=== PATIENT | female | born 1990 | race Caucasian/White ===

== ENCOUNTER 2016-07-24 10:13 | Emergency (ER) | payer OTHER ==
[~2016-07-24] VITALS: Ht 160 cm; Wt 63.5 kg
[~2016-07-24 10:13] MED LIST: BACTRIM DS 8001 TAB PO; ENDOCET 325 MG-1 TA1 PO; KEFLEX500 MG PO; KETOROLAC TROME10 M1 PO; MOTRIN 600 MG600 MG PO; MOTRIN800 MG PO; NAPROXEN500 M1 PO; PERCOCET 325 MG1 TA2 PO; POLYTRIM O200 GTT/BO OPH; SEASONIQUE 30 M1 TAB PO; VIBRAMYCIN 100100 MG PO; VICODIN 5-3001 EACH PO
--- NOTE | 2016-07-24 11:36 | ED SKIN/ALLERGY COMPLAINT ---
History of Present Illness General Chief Complaint: Skin Rash/ Abcess Stated Complaint: SKIN RASH Source: patient, old records Exam Limitations: no limitations Vital Signs & Intake/Output Vital Signs & Intake/Output Vital Signs Date Time Temp Pulse Resp B/P Pulse O2 O2 Flow FiO2 Ox Delivery Rate 07/24 1246 98.1 74 18 126/72 97 Room Air 07/24 1049 97.4 70 20 122/77 98 Room Air Allergies Coded Allergies: lactose (Intermediate, GI UPSET 07/24/16) Reconcile Medications Amoxicillin/Potassium Clav (Augmentin 875-125 Tablet) 875 MG-125 MG TABLET 1 TAB PO BID CELLULITIS Prednisone 10 MG TABLET 1 TAB PO DAILY RASH TAKE 4 TABS FOR 3 DAYS THEN TAKE 3 TABS FOR 3 DAYS THEN TAKE 2 TABS FOR 3 DAYS THEN TAKE 1 TAB FOR 3 DAYS Triage Note: TRIAGE: PT TO ER C/C RASH TO L ARM AND TO TRUNK. NOTICED SAME THIS MORNING. STATES "I'M ITCHING LIKE CRAZY AND TEARING THE SKIN OFF". USED CORTIZONE CREAM WITH SHORT/TEMPORARY RELIEF. Triage Nurses Notes Reviewed? yes : No Patient currently breastfeeds: No HPI: Patient was staying with a friend in [place] in a cabin in the [facility] over the weekend. Patient noticed that her left forearm was itching yesterday. This morning she noticed that she was now getting a rash to her left forearm and this morning the rash spread to her left lower abdomen. There are no fevers however she does have a chills. She notices that the skin around the rash is now starting to become red and warm to touch. Rash constant. Patient denies any pain. There is no difficulty breathing or swallowing. States that she is also urinating more than than normal. Patient denies any dysuria. Past History Travel History Traveled to [place] past 21 day No Medical History Any Pertinent Medical History? 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 No Review of Systems Review of Systems Constitutional: Reports: see HPI, chills. EENTM: Reports: no symptoms. Respiratory: Reports: no symptoms. Cardiovascular: Reports: no symptoms. Genitourinary: Reports: see HPI, frequency. Musculoskeletal: Reports: no symptoms. Skin: Reports: see HPI, rash. Immunologic/Allergic: Reports: no symptoms. Physical Exam Physical Exam General Appearance: well developed/nourished, alert, awake, mild distress Eyes: Bilateral: PERRL, EOMI. Ears, Nose, Throat: normal pharynx, normal ENT inspection, hearing grossly normal Neck: normal inspection, supple Respiratory: normal breath sounds, chest non-tender, no respiratory distress, lungs clear Cardiovascular: regular rate/rhythm, normal peripheral pulses Gastrointestinal: normal bowel sounds, soft, non-tender, no organomegaly Back: normal inspection, normal range of motion, NO cva TENDERNESS Extremities: normal capillary refill, normal range of motion Neurologic/Psych: no motor/sensory deficits, awake, alert, oriented x 3, normal gait Skin: rash Skin Problem Location: upper extremities, torso Skin Problem Character: macules, papules Lymphatic: NO ADENOPATHY Progress Differential Diagnosis: abscess/cellulitis, contact dermatitis Plan of Care: Orders Procedure Date/time Status URINE 07/24 1141 Complete URINALYSIS 07/24 1141 Complete Laboratory Tests 07/24/16 1155: Urinalysis LIGHT H, Urine Color KIERA, Urine Clarity HAZY H, Urine pH 6.0, Ur Specific [place] >= 1.030, Urine Protein 100 H, Urine Ketones NEG, Urine Nitrite NEG, Urine Bilirubin NEG, Urine Urobilinogen 0.2, Ur Leukocyte Esterase NEG, Ur Microscopic SEDIMENT EXAMINED, Urine RBC 1-3, Urine WBC RARE, Ur Epithelial Cells MANY H, Urine Bacteria MOD H, Urine Mucus PACKD H, Urine Hemoglobin TRACE-LYSED, Urine Glucose NEG, Urine Test NEGATIVE Departure Departure Disposition: HOME OR SELF CARE Condition: Stable Clinical Impression Primary Impression: Rash Secondary Impressions: Cellulitis Referrals: SHAQUILLE THOMPSON,DELROY Rincon (PCP/Family) Additional Instructions: TAKE MEDICATIOSN PRESCRIBED REUTRN IF SYMPTOMS WORSEN OR NEEDED Departure Forms: Customer Survey General Discharge Information Prescriptions: Current Visit Scripts Amoxicillin/Potassium Clav (Augmentin 875-125 Tablet) 1 TAB PO BID #20 TAB Prednisone 1 TAB PO DAILY #30 TAB TAKE 4 TABS FOR 3 DAYS THEN TAKE 3 TABS FOR 3 DAYS THEN TAKE 2 TABS FOR 3 DAYS THEN TAKE 1 TAB FOR 3 DAYS
[2016-07-24] MEDS ORDERED: AUGMENTIN 875-1 EACH PO (12:41)
[2016-07-24] MEDS ORDERED: PREDNISONE10 M2 PO (12:41)
[2016-07-24 12:46] VITALS: BP 126/72
== END 2016-07-24 12:47 ==
LOC: ERH 10:13
DX: R21 Rash and other nonspecific skin eruption (principal); L03.90 Cellulitis, unspecified; R68.83 Chills (without fever); R35.0 Frequency of micturition
CPT/HCPCS: 81001; 81025

== ENCOUNTER 2016-09-21 07:41 | Emergency (ER) | payer OTHER ==
[~2016-09-21] VITALS: Ht 160 cm; Wt 59.0 kg
[~2016-09-21 07:41] MED LIST changes: +AUGMENTIN 875-1 EACH PO; +PREDNISONE10 M2 PO
--- NOTE | 2016-09-21 08:10 | ED GI/GU/ABDOMINAL COMPLAINT ---
History of Present Illness General Chief Complaint: Abdominal Pain/Flank Pain Stated Complaint: ABD PAIN Source: patient Exam Limitations: no limitations Vital Signs & Intake/Output Vital Signs & Intake/Output Vital Signs Date Time Temp Pulse Resp B/P B/P Pulse O2 O2 Flow FiO2 Mean Ox Delivery Rate 09/21 0755 Room Air 09/21 0742 98.6 69 18 107/68 98 Room Air Allergies Coded Allergies: lactose (Intermediate, GI UPSET 07/24/16) Reconcile Medications Naproxen (Naprosyn) 500 MG TABLET 1 TAB PO BID PRN PAIN Triage Note: 26 YO FEMALE TO TRIAGE C/O RLQ PAIN SINCE SUNDAY. STATES +NAUSEA/VOMTINIG/DIARRHEA. HX OF ENDOMETRIOSIS (STATES THIS PAIN IS DIFFERENT) LMP 09/04/16. Triage Nurses Notes Reviewed? yes ? N Is pt currently ? No Onset: Gradual Duration: worse persistent since (1 DAY) Timing: remote history Quality/Severity: cramping Severity Numbers: 6 Location: suprapubic Radiation: no radiation Activities at Onset: none Prior Abdominal Problems: similar symptoms HPI: Patient is a 26-year-old female with history of ovarian cysts, endometriosis presenting to the emergency department with chief complaint of suprapubic pain has been going on for the past couple days worse this morning. Denies any nausea vomiting fevers or chills. Positive decreased by mouth intake. No appetite. Denies any vaginal discharge or bleeding. Denies chance of STD or . Last menstrual period was 2 weeks ago and normal. Denies any recent travel or recent antibiotic use. Past History Travel History Traveled to [place] past 21 day No Medical History Any Pertinent Medical History? 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 No Review of Systems Review of Systems Constitutional: Reports: no symptoms. Comments Review of systems: See HPI, All other systems negative. Constitutional, no chills fever or weight loss HEENT: No visual changes no sore throat no congestion Cardiovascular: No chest pain ,palpitation Skin, no jaundice no rashes Respiratory: No dyspnea cough sputum or hemoptysis GI: No nausea no vomiting : No dysuria No hematuria Muscle skeletal: no back pain, no neck pain, Neurologic: No numbness no confusion Psych: No stress anxiety Immunology: No splenectomy or history of AIDS Physical Exam Physical Exam General Appearance: well developed/nourished, no apparent distress, alert, awake , comfortable Gastrointestinal: normal bowel sounds, soft, tenderness Comments: Well-developed well-nourished person in no acute distress HEENT: Pupils equally round and reactive to light and accommodation. Nose is atraumatic. Neck: Normal inspection Back: Nontender, no CVA tenderness. Full range of motion Cardiovascular: Regular rate and rhythms no murmurs rubs or gallops, normal JVP Respiratory: Chest nontender. No respiratory distress.breath sounds clear to auscultation bilaterally Abdomen: Soft, tenderness to palpation in the suprapubic region bilaterally, no rebound or guarding, nondistended, no appreciable organomegaly. Normal bowel sounds. No ascites Extremity: No edema Neuro: Alert oriented x3 Skin: No appreciable rash on exposed skin, skin is warm and dry. Psych: Mood and affect is normal, memory and judgment is normal. Core Measures ACS in differential dx? No Severe Sepsis Present: No Septic Shock Present: No Progress Differential Diagnosis: appendicitis, endometritis, gastritis, kidney stone, ovarian cyst, ovarian torsion, UTI/pyelo, Plan of Care: Orders Procedure Date/time Status LIPASE 09/21 0808 Complete COMPREHENSIVE METABOLIC PANEL 09/21 0808 Complete CBC WITHOUT DIFFERENTIAL 09/21 0808 Complete URINE 09/21 0746 Complete URINALYSIS 09/21 0746 Complete Laboratory Tests 09/21/16 0907: Urine Color YEL, Urine Clarity CLEAR, Urine pH 6.0, Ur Specific [place] 1.025, Urine Protein NEG, Urine Ketones NEG, Urine Nitrite NEG, Urine Bilirubin NEG, Urine Urobilinogen 0.2, Ur Leukocyte Esterase NEG, Ur Microscopic EXAM NOT REQUIRED, Urine Hemoglobin NEG, Urine Glucose NEG, Urine Test NEGATIVE 09/21/16 0809: Anion Gap 11, Estimated GFR > 60, BUN/Creatinine Ratio 6.3 L, Glucose 72, Calcium 9.6, Total Bilirubin 0.5, AST 18, ALT 33, Alkaline Phosphatase 65, Total Protein 6.8, Albumin 4.2, Globulin 2.6, Albumin/Globulin Ratio 1.6, Lipase 164, CBC w Diff NO MAN DIFF REQ, RBC 4.20, MCV 94.7, MCH 31.5 H, RDW 13.3, MPV 9.1, Gran % 53.5, Lymphocytes % 36.8, Monocytes % 6.5, Eosinophils % 2.7, Basophils % 0.5, Absolute Granulocytes 5.6, Absolute Lymphocytes 3.9 H, Absolute Monocytes 0.7 H, Absolute Eosinophils 0.3, Absolute Basophils 0.1, PUBS MCHC 33.3 Diagnostic Imaging: Viewed by Me: Ultrasound. Discussed w/RAD: Ultrasound. Radiology Impression: PATIENT: EUGENIA RANGEL PRESENT AGE: 26 PATIENT ACCOUNT NO: [id number] : 89 LOCATION: [facility] ORDERING PHYSICIAN: JOE SHAW SERVICE DATE: 09/21/16 EXAM TYPE: US - US-TRANSVAGINAL EXAMINATION: US TRANSVAGINAL CLINICAL INFORMATION: Suprapubic pain. Rule out ovarian cyst. Date of LMP 09/04/2016. COMPARISON: Pelvic ultrasound of 06/24/[address] abdomen and pelvis of 03/24/2007. TECHNIQUE: Real-time scanning of the uterus is acquired via transvaginal approach. FINDINGS: The uterus is anteverted and normal in size measuring 7.6 x 2.5 x 3.6 cm in length, AP and transverse dimensions respectively. Endometrial stripe thickness is 0.5 cm. The myometrial echotexture is homogeneous. No focal myometrial mass. The cervical length is approximately 3.2 cm. Trace fluid is noted in the cervical canal. Nabothian cyst is noted in the cervix. The right ovary measures 2.6 x 4.2 x 2.4 cm with a volume of 14 mL (remeasured). There is a complex avascular cyst in the right ovary measuring 1.7 x 1.3 x 1.4 cm, with anechoic cystic lesion containing a 0.8 x 1.2 x 1.1 cm from internal echogenic avascular component. On previous examination a 1.3 x 1.7 x 1.6 cm simple cyst was noted in this region. The left ovary is normal in appearance containing multiple follicles. Left ovary measures 3.1 x 2.3 x 2.2 cm with a volume of 9 mL. Bilateral intraovarian blood flow is documented. No adnexal mass or free fluid. IMPRESSION: A complex right ovarian cyst measuring 1.7 x 1.3 x 1.4 cm. Recommend follow-up ultrasound in 2-3 menstrual cycles. Normal sonographic appearance of the uterus and left ovary. DICTATED BY: GUSTAVO WYNN MD DATE/TIME DICTATED:09/21/161005 TICKET MANAGER:SURINDER DATE/TIME TRANSCRIBED:1005 CONFIDENTIAL, DO NOT COPY WITHOUT APPROPRIATE AUTHORIZATION. 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 It is recommended that he receive a repeat ultrasound in 3-4 months to reassess the status. Take anti-inflammatories prescribed. Return for worsening symptoms or concerns. Increase fluids. PATIENT: EUGENIA RANGEL PRESENT AGE: 26 PATIENT ACCOUNT NO: [id number] : 89 LOCATION: [facility] ORDERING PHYSICIAN: JOE SHAW SERVICE DATE: 09/21/16 EXAM TYPE: US - US-TRANSVAGINAL EXAMINATION: US TRANSVAGINAL CLINICAL INFORMATION: Suprapubic pain. Rule out ovarian cyst. Date of LMP 09/04/2016. COMPARISON: Pelvic ultrasound of 06/24/[address] abdomen and pelvis of 03/24/2007. TECHNIQUE: Real-time scanning of the uterus is acquired via transvaginal approach. FINDINGS: The uterus is anteverted and normal in size measuring 7.6 x 2.5 x 3.6 cm in length, AP and transverse dimensions respectively. Endometrial stripe thickness is 0.5 cm. The myometrial echotexture is homogeneous. No focal myometrial mass. The cervical length is approximately 3.2 cm. Trace fluid is noted in the cervical canal. Nabothian cyst is noted in the cervix. The right ovary measures 2.6 x 4.2 x 2.4 cm with a volume of 14 mL (remeasured). There is a complex avascular cyst in the right ovary measuring 1.7 x 1.3 x 1.4 cm, with anechoic cystic lesion containing a 0.8 x 1.2 x 1.1 cm from internal echogenic avascular component. On previous examination a 1.3 x 1.7 x 1.6 cm simple cyst was noted in this region. The left ovary is normal in appearance containing multiple follicles. Left ovary measures 3.1 x 2.3 x 2.2 cm with a volume of 9 mL. Bilateral intraovarian blood flow is documented. No adnexal mass or free fluid. IMPRESSION: A complex right ovarian cyst measuring 1.7 x 1.3 x 1.4 cm. Recommend follow-up ultrasound in 2-3 menstrual cycles. Normal sonographic appearance of the uterus and left ovary. DICTATED BY: GUSTAVO WYNN MD DATE/TIME DICTATED:09/21/161005 TICKET MANAGER:SURINDER DATE/TIME TRANSCRIBED:09/21/161005 CONFIDENTIAL, DO NOT COPY WITHOUT APPROPRIATE AUTHORIZATION. <Electronically signed in Other Vendor System> SIGNED BY: GUSTAVO WYNN MD 09/21/16 1025 Departure Forms: Customer Survey D/C INS-APPENDICITIS EXCLUSION General Discharge Information Prescriptions: Current Visit Scripts Naproxen (Naprosyn) 1 TAB PO BID PRN PAIN #10 TAB
[2016-09-21 08:24] LABS: ABSOLUTE BASOPHIL COUNT 0.1 /CUMM (0.0-0.2); ABSOLUTE EOSINOPHIL COUNT 0.3 /CUMM (0.0-0.7); ABSOLUTE GRANULOCYTE CT 5.6 /CUMM (1.4-6.5); ABSOLUTE LYMPH COUNT 3.9 /CUMM (1.2-3.4); ABSOLUTE MONOCYTE COUNT 0.7 /CUMM (0.10-0.60); BASOPHIL % 0.5 % (0.0-2.0); EOSINOPHIL % 2.7 % (0-5); GRANULOCYTE % 53.5 % (42.2-75.2); HEMATOCRIT 39.8 % (37-47); MEAN CORPUSCULAR HGB 31.5 PG (27.0-31.0); MEAN CORPUSCULAR HGB CONC 33.3 G/DL (33.0-37.0); MEAN CORPUSCULAR VOLUME 94.7 FL (81.0-99.0); MEAN PLATELET VOLUME 9.1 FL (7.4-10.4); PLATELET COUNT 313 /CUMM (130-400); RBC DISTRIBUTION WIDTH 13.3 % (11.5-14.5); WHITE BLOOD CELL COUNT 10.5 /CUMM (4.8-10.8)
--- NOTE | 2016-09-21 10:25 | ULTRASOUND REPORT ---
EXAMINATION: US TRANSVAGINAL CLINICAL INFORMATION: Suprapubic pain. Rule out ovarian cyst. Date of LMP 09/04/2016. COMPARISON: Pelvic ultrasound of 06/24/[address] abdomen and pelvis of 03/24/2007. TECHNIQUE: Real-time scanning of the uterus is acquired via transvaginal approach. FINDINGS: The uterus is anteverted and normal in size measuring 7.6 x 2.5 x 3.6 cm in length, AP and transverse dimensions respectively. Endometrial stripe thickness is 0.5 cm. The myometrial echotexture is homogeneous. No focal myometrial mass. The cervical length is approximately 3.2 cm. Trace fluid is noted in the cervical canal. Nabothian cyst is noted in the cervix. The right ovary measures 2.6 x 4.2 x 2.4 cm with a volume of 14 mL (remeasured). There is a complex avascular cyst in the right ovary measuring 1.7 x 1.3 x 1.4 cm, with anechoic cystic lesion containing a 0.8 x 1.2 x 1.1 cm from internal echogenic avascular component. On previous examination a 1.3 x 1.7 x 1.6 cm simple cyst was noted in this region. The left ovary is normal in appearance containing multiple follicles. Left ovary measures 3.1 x 2.3 x 2.2 cm with a volume of 9 mL. Bilateral intraovarian blood flow is documented. No adnexal mass or free fluid. IMPRESSION: A complex right ovarian cyst measuring 1.7 x 1.3 x 1.4 cm. Recommend follow-up ultrasound in 2-3 menstrual cycles. Normal sonographic appearance of the uterus and left ovary.
[2016-09-21] MEDS ORDERED: NAPROSYN500 M1 PO (10:38)
[2016-09-21 10:41] VITALS: BP 100/68
== END 2016-09-21 10:45 ==
LOC: ERH 07:41
PROVIDERS: Physician Assistant
DX: N83.201 Unspecified ovarian cyst, right side (principal)
CPT/HCPCS: 81003; 81025; 96372; J1885

== ENCOUNTER 2016-10-03 15:38 | Emergency (ER) | payer OTHER ==
[~2016-10-03] VITALS: Ht 160 cm; Wt 59.0 kg
[~2016-10-03 15:38] MED LIST changes: +NAPROSYN500 M1 PO
[2016-10-03 15:46] VITALS: BP 120/67
[2016-10-03] MEDS ORDERED: HYDROCODON-ACE1 EAC2 PO (17:36)
--- NOTE | 2016-10-03 17:37 | ED GI/GU/ABDOMINAL COMPLAINT ---
History of Present Illness General Chief Complaint: Female Urogenital Problems Stated Complaint: LOWER ABD PAIN Source: patient Exam Limitations: no limitations Vital Signs & Intake/Output Vital Signs & Intake/Output Vital Signs Date Time Temp Pulse Resp B/P B/P Pulse O2 O2 Flow FiO2 Mean Ox Delivery Rate 10/03 1546 98.9 81 15 120/67 100 Room Air Allergies Coded Allergies: lactose (Intermediate, GI UPSET 07/24/16) Reconcile Medications Hydrocodone/Acetaminophen (Hydrocodon-Acetaminophen 5-325) 5 MG-325 MG TABLET 1-2 TAB PO Q4-6 PRN PRN pain Naproxen (Naprosyn) 500 MG TABLET 1 TAB PO BID PRN PAIN Triage Note: PT TO ED FOR PELVIC PAIN AND "IT FEELS LIKE THERE IS ROCKS IN MY HEAD" PT STATING SHE WAS SEEN IN ED FOR SAME ON 09/21, REFERRED TO F/U WITH HER OB (HAS A F/U APPT ON SUNDAY) BUT COMES TO ED TODAY FOR PAIN CONTROL AND STATING SHE IS 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 Triage Nurses Notes Reviewed? yes ? n Is pt currently ? No Onset: Abrupt Duration: week(s): (couple), constant Timing: recent history Location: right lower quadrant, pelvic Radiation: no radiation Activities at Onset: none No Modifying Factors: none HPI: 26-year-old female comes into emergency room for further evaluation of ovarian cyst pain to her right lower abdomen. Patient was seen here couple weeks ago and diagnosed with ovarian cyst. Patient has an appointment with her BOTTOM BUFFER doctor this Sunday. Patient is here primarily for pain medication. Patient does not want any further evaluation with blood work urine or diagnostic imaging. Patient just wants some pain medication and a work note for this week. She denies any fever chills decreased appetite and nausea vomiting or change in bowel movement. Denies any urinary symptoms. Denies any vaginal discharge. Patient has an extensive history ovarian cysts and she was teenager and reports that the pain feels very similar. Denies any other associated symptoms. (VELIA HILLIARD) Past History Travel History Traveled to [place] past 21 day No Medical History Any Pertinent Medical History? 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 No (VELIA HILLIARD) Review of Systems Review of Systems Constitutional: Reports: no symptoms. EENTM: Reports: no symptoms. Respiratory: Reports: no symptoms. Cardiovascular: Reports: no symptoms. GI: Reports: see HPI. Genitourinary: Reports: see HPI. Musculoskeletal: Reports: no symptoms. Skin: Reports: no symptoms. Neurological/Psychological: Reports: no symptoms. Hematologic/Endocrine: Reports: no symptoms. Immunologic/Allergic: Reports: no symptoms. All Other Systems: Reviewed and Negative (VELIA HILLIARD) Physical Exam Physical Exam General Appearance: well developed/nourished, alert, awake Head: atraumatic, normal appearance Eyes: Bilateral: normal appearance, EOMI. Ears, Nose, Throat, Mouth: hearing grossly normal, moist mucous membrane Neck: normal inspection Respiratory: normal breath sounds, no respiratory distress Cardiovascular: regular rate/rhythm Gastrointestinal: soft, tenderness (mild RLQ), no guarding or rebound tenderness Back: normal inspection Extremities: normal range of motion Neurologic/Psych: awake, alert, oriented x 3, normal gait, normal mood/affect Skin: intact, normal color Core Measures ACS in differential dx? No Severe Sepsis Present: No Septic Shock Present: No (VELIA HILLIARD) Progress Differential Diagnosis: appendicitis, biliary colic, cholecystitis, diverticulitis, ectopic , gastritis, ischemic bowel, intrauterine , ovarian cyst, ovarian torsion, pancreatitis, PID/cervicitis, peptic ulcer, PUD/GERD, SBO, UTI/pyelo Plan of Care: Laboratory Tests 10/03/16 1718: Urine Test Cancelled Initial ED EKG: none Comments: 10/03/2016 6:13:52 PM Patient clinically looks well. Nontoxic-appearing. In no apparent distress. Pain is more consistent with ovarian cyst pain. Patient was told that we should get blood work and urine sample and possibly diagnostic imaging. She declined. 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 She understands that there could be potentially other things going on besides ovarian cyst. I have a very low suspicion for appendicitis but discussed early possibility appendicitis with the patient. Patient understands the risks of leaving without further evaluation with blood work and urine. Potentially life- threatening conditions that can't be ruled out. Patient will follow-up with her BOTTOM BUFFER doctor and return if she has any worsening of symptoms. (MICHELLE SHAW,VELIA) Departure Departure Disposition: HOME OR SELF CARE Condition: Stable Clinical Impression Primary Impression: Abdominal pain Secondary Impressions: Complex cyst of right ovary Referrals: SHAQUILLE THOMPSON,DELROY Rincon (PCP/Family) Additional Instructions: Take Vicodin as prescribed. Follow-up with your primary care doctor. Return if any concerns worsening symptoms. Follow-up with your BOTTOM BUFFER doctor. At this time you declined any further evaluation with blood work and possible diagnostic imaging as well as urine sample. Please go over all results of today's visit with your primary care doctor. Contact your primary care doctor to let them know you were here in the emergency room. There may be nonspecific findings which may not be related to your visit today here in the emergency room but may require further evaluation and chronic monitoring by your primary care doctor. If you had a laceration today the chance of foreign body always remains. You should follow-up with your primary care doctor for recheck in 3-5 days for a wound check. If you had an x-ray done there is a chance that a fracture could have been missed on initial read and you should follow-up with your primary care doctor for repeat x-rays if symptoms persist. If your blood pressure was elevated here in the emergency room please have rechecked by her primary care doctor within the next 48 hours by your primary care doctor. If you were prescribed a narcotic here in the emergency room or any type of controlled substances you're not allowed to drive while taking this medication or operate any type of heavy machinery. Narcotics can make you feel lightheaded dizziness nausea and can cause constipation. You may need to berry picker a stool softener. Thank you for choosing [facility] emergency room. Please return to the emergency room immediately if you have any other concerns worsening of symptoms. Departure Forms: Customer Survey General Discharge Information Prescriptions: Current Visit Scripts Hydrocodone/Acetaminophen (Hydrocodon-Acetaminophen 5-325) 1-2 TAB PO Q4-6 PRN PRN pain #15 TAB (VELIA HILLIARD) PA/GAS METER READER Co-Sign Statement Statement: ED Attending supervision documentation- [] I saw and evaluated the patient. I have also reviewed all the pertinent lab results and diagnostic results. I agree with the findings and the plan of care as documented in the PA's/GAS METER READER's documentation. [X] I have reviewed the ED Record and agree with the PA's/GAS METER READER's documentation. [] Additions or exceptions (if any) to the PAs/GAS METER READER's note and plan are summarized below: [] (ANALIA THOMPSON,WILLIAM)
== END 2016-10-03 18:03 ==
LOC: ERH 15:38
DX: N83.201 Unspecified ovarian cyst, right side (principal)
CPT/HCPCS: 81025

== ENCOUNTER 2017-05-17 12:00 | Emergency (ER) | payer OTHER ==
[~2017-05-17] VITALS: Ht 160 cm; Wt 67.6 kg
[~2017-05-17 12:00] MED LIST changes: +HYDROCODON-ACE1 EAC2 PO
--- NOTE | 2017-05-17 12:38 | ED GENERAL ADULT ---
History of Present Illness General Chief Complaint: General Adult Stated Complaint: 8WKS PREG / VISUAL DISTURBANCE AND NUMBNESS IN FIN Source: patient Exam Limitations: no limitations Vital Signs & Intake/Output Vital Signs & Intake/Output Vital Signs Date Time Temp Pulse Resp B/P B/P Pulse O2 O2 Flow FiO2 Mean Ox Delivery Rate 05/17 1552 98.5 73 19 122/71 99 Room Air 05/17 1351 98.7 70 20 120/66 100 Room Air 05/17 1211 98.9 68 18 110/56 99 Room Air Allergies Coded Allergies: lactose (Intermediate, GI UPSET 07/24/16) Reconcile Medications Pnv#67/Iron Ps/FA Cmb#1/Dha (Vitafol Ultra Softgel) 29 MG IRON-1 MG-200 MG CAPSULE 1 CAP PO DAILY (Reported) Triage Note: PT TO ED FOR VISUAL CHANGES AND INTERMITTENT FINGER TIP, MOUTH AND NOSE NUMBNESS X 2 HOURS. PT ALSO C/O "HEAVINESS AT THE TOP OF MY VAGINA" PT IS CURRENTLY 8 WEEKS . DENIES FALLING AND TRAUMA, CURRENTLY ALSO REPORTING HEADACHE. Triage Nurses Notes Reviewed? yes Onset: Abrupt Duration: hour(s): Timing: recent history : Yes Patient currently breastfeeds: No HPI: 05/17/17 2:50 PM 27-year-old female presents to the emergency department for status post left sided blurry vision and left hand finger tingling. She's also had several episodes of vomiting. The patient states she was in her usual state of health until this morning when she developed intermittent episodes of left sided peripheral zigzagging in her vision and left hand paresthesias. Currently in the emergency department she denies any visual complaints. She denies headache or any abdominal pain or vaginal bleeding. Past History Travel History Traveled to [place] past 21 day No Medical History Any Pertinent Medical History? 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 No Review of Systems Review of Systems Constitutional: Denies: fever. EENTM: Reports: visual changes. Respiratory: Denies: short of breath. Cardiovascular: Denies: chest pain. GI: Denies: abdominal pain. Genitourinary: Reports: no symptoms. Musculoskeletal: Reports: no symptoms. Skin: Reports: no symptoms. Neurological/Psychological: Reports: no symptoms. Hematologic/Endocrine: Reports: see HPI. Immunologic/Allergic: Reports: no symptoms. Physical Exam Physical Exam General Appearance: well developed/nourished, alert, awake, anxious Head: atraumatic, normal appearance Eyes: Bilateral: normal appearance, PERRL, EOMI. Ears, Nose, Throat: normal pharynx, normal ENT inspection Neck: normal inspection, supple Respiratory: normal breath sounds, chest non-tender, no respiratory distress Cardiovascular: regular rate/rhythm Peripheral Pulses: 4+ radial (R), 4+ radial (L) Gastrointestinal: normal bowel sounds, soft, non-tender Back: normal range of motion Extremities: normal range of motion Neurologic/Psych: no motor/sensory deficits, awake, alert, oriented x 3 Skin: intact, normal color, warm/dry Core Measures ACS in differential dx? No CVA/TIA Diagnosis: No Sepsis Present: No Sepsis Focused Exam Completed? No Progress Differential Diagnoses I considered the following diagnoses in my evaluation of the patient: [ migraine headache, preeclampsia, related hypertension, electrolyte derangement, TIA, retinal detachment, vitreous detachment] Plan of Care: Orders Procedure Date/time Status EKG 05/17 1603 Active Add-on Test (ER Only) 05/17 1454 Active Add-on Test (ER Only) 05/17 1453 Active Add-on Test (ER Only) 05/17 1447 Active PROTHROMBIN TIME 05/17 1352 Complete TROPONIN LEVEL 05/17 1350 Complete HUMAN BETA HCG SCREEN 05/17 1350 Complete CULTURE,URINE 05/17 1339 Active URINE 05/17 1339 Complete URINE DRUG SCREEN FOR ER ONLY 05/17 1339 Complete URINALYSIS 05/17 1339 Complete COMPREHENSIVE METABOLIC PANEL 05/17 1338 Complete CBC WITHOUT DIFFERENTIAL 05/17 1338 Complete Laboratory Tests 05/17/17 1354: Urine Opiates Screen < 100.00, Methadone Screen < 40, Barbiturate Screen < 60, Ur Phencyclidine Scrn < 6.00, Amphetamines Screen < 100, U Benzodiazepines Scrn < 85, Urine Cocaine Screen 91, Urine Cannabis Screen > 80.00 H, Urine Color YEL , Urine Clarity CLEAR, Urine pH 6.5, Ur Specific [facility] 1.025, Urine Protein NEG, Urine Ketones NEG, Urine Nitrite NEG, Urine Bilirubin NEG, Urine Urobilinogen 0.2, Ur Leukocyte Esterase NEG, Ur Microscopic EXAM NOT REQUIRED, Urine Hemoglobin NEG, Urine Glucose NEG 05/17/17 1352: PT 10.5, INR 1.00 05/17/17 1350: Anion Gap 13, Estimated GFR > 60, BUN/Creatinine Ratio 12.9, Glucose 86, Calcium 9.6, Total Bilirubin 0.2, AST 15, ALT 31, Alkaline Phosphatase 57, Troponin I < 0.01, Total Protein 6.7, Albumin 4.2, Globulin 2.5, Albumin/Globulin Ratio 1.7, Total Beta HCG POSITIVE, CBC w Diff NO MAN DIFF REQ, RBC 3.63 L, MCV 95.4, MCH 31.8 H, RDW 13.3, MPV 8.4, Gran % 60.1, Lymphocytes % 30.7, Monocytes % 6.2, Eosinophils % 2.1, Basophils % 0.9, Absolute Granulocytes 6.4, Absolute Lymphocytes 3.3, Absolute Monocytes 0.7 H, Absolute Eosinophils 0.2, Absolute Basophils 0.1, PUBS MCHC 33.4 05/17/17 1339: Urine Test POSITIVE Microbiology 05/17 1353 URINE ROUT: Urine Culture - RECD Initial ED EKG: pending Departure Departure Disposition: STILL A PATIENT Condition: Stable Clinical Impression Primary Impression: Paresthesia Referrals: Roe THOMPSON,Jere Rincon (PCP/Family) Departure Forms: Customer Survey General Discharge Information Comments 05/17/17 4:12 PM Patient is asymptomatic in the Emergency Department. Labs essentially unremarkable. EKG normal sinus rhythm. Her neurological exam is normal. She has no visual complaints at this time. Patient's urine toxicology was positive for marijuana. Her neurological exam and repeat neurological exams were normal I considered TIA. Unlikely has her neurological exam is normal, she is only 27 years old, no history of coagulopathy. 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 Candelaria. She is currently asymptomatic in the emergency department and will follow-up with her this week. She was also referred to the real estate professional. She was told to return to the emergency department immediately should her symptoms recur. PATIENT: EUGENIA RANGEL PRESENT AGE: 27 PATIENT ACCOUNT NO: [id number] : 89 LOCATION: [facility] ORDERING PHYSICIAN: Quinten Bae DO SERVICE DATE: 05/17/17 EXAM TYPE: US - US- VIABILITY EXAMINATION: ULTRASOUND PELVIC, COMPLETE CLINICAL INFORMATION: Pain lower abdomen and pelvis COMPARISON: Transvaginal ultrasound 09/21/2016 TECHNIQUE: Transvaginal: Used to better visualize pelvic structures Transabdominal: Not adequate for visualization Spectral Doppler and color Doppler exam was utilized. LMP: 03/16/2018. Gestational age 8 weeks 6 days. ASUNCION 12/21/2017 FINDINGS: UTERUS: There is a single intrauterine gestation. Yolk sac is present and there is a pole. heart rate 157 bpm. [place]-rump length 1.4 cm. Gestational age by ultrasound is 8 weeks 1 day, ASUNCION 12/26/2017. There is a small subchorionic hemorrhage which is hypoechoic adjacent to the gestational sac. This measures 0.7 x 1 x 0.7 cm ADNEXA: Ovarian vascularity:Doppler demonstrates both arterial and venous vascular flow in the right and left ovary. No evidence of ovarian torsion. Right Ovary: Corpus luteum cyst in the right ovary measuring 1.1 x 1.1 x 1.3 cm. Right ovary measures 2.6 x 2.8 x 2.9 cm. Left Ovary: Left ovary measures 3.3 x 1.4 x 1.4 cm. Cul-de-sac: No Fluid IMPRESSION: 1. Intrauterine gestation with estimated gestational age by today's exam of 8 weeks 1 day, ASUNCION 12/26/2017. 2. Small subchorionic hemorrhage adjacent to the gestational sac measuring 0.7 x 1 x 0.7 cm. DICTATED BY: Jere Barragan MD DATE/TIME DICTATED:05/17/171527 AVIATION SUPPORT EQUIPMENT REPAIRER:SURINDER DATE/TIME TRANSCRIBED:05/17/171527 CONFIDENTIAL, DO NOT COPY WITHOUT APPROPRIATE AUTHORIZATION. <Electronically signed in Other Vendor System> SIGNED BY: Jere Barragan MD 05/17/17 1369 Critical Care Note Critical Care Note Critical Care Time: non-applicable
[2017-05-17 14:01] LABS: ABSOLUTE BASOPHIL COUNT 0.1 /CUMM (0.0-0.2); ABSOLUTE EOSINOPHIL COUNT 0.2 /CUMM (0.0-0.7); ABSOLUTE GRANULOCYTE CT 6.4 /CUMM (1.4-6.5); ABSOLUTE LYMPH COUNT 3.3 /CUMM (1.2-3.4); ABSOLUTE MONOCYTE COUNT 0.7 /CUMM (0.10-0.60); BASOPHIL % 0.9 % (0.0-2.0); EOSINOPHIL % 2.1 % (0-5); GRANULOCYTE % 60.1 % (42.2-75.2); HEMATOCRIT 34.7 % (37-47); MEAN CORPUSCULAR HGB 31.8 PG (27.0-31.0); MEAN CORPUSCULAR HGB CONC 33.4 G/DL (33.0-37.0); MEAN CORPUSCULAR VOLUME 95.4 FL (81.0-99.0); MEAN PLATELET VOLUME 8.4 FL (7.4-10.4); PLATELET COUNT 311 /CUMM (130-400); RBC DISTRIBUTION WIDTH 13.3 % (11.5-14.5); RED BLOOD CELL CT 3.63 /CUMM (4.20-5.40); WHITE BLOOD CELL COUNT 10.7 /CUMM (4.8-10.8)
[2017-05-17] MEDS ORDERED: VITAFOL ULTRA1 EACH PO (14:19)
[2017-05-17 15:16] LABS: PT 10.5 SEC (9.4-12.5)
--- NOTE | 2017-05-17 15:35 | ULTRASOUND REPORT ---
EXAMINATION: ULTRASOUND PELVIC, COMPLETE CLINICAL INFORMATION: Pain lower abdomen and pelvis COMPARISON: Transvaginal ultrasound 09/21/2016 TECHNIQUE: Transvaginal: Used to better visualize pelvic structures Transabdominal: Not adequate for visualization Spectral Doppler and color Doppler exam was utilized. LMP: 03/16/2018. Gestational age 8 weeks 6 days. ASUNCION 12/21/2017 FINDINGS: UTERUS: There is a single intrauterine gestation. Yolk sac is present and there is a pole. heart rate 157 bpm. [place]-rump length 1.4 cm. Gestational age by ultrasound is 8 weeks 1 day, ASUNCION 12/26/2017. There is a small subchorionic hemorrhage which is hypoechoic adjacent to the gestational sac. This measures 0.7 x 1 x 0.7 cm ADNEXA: Ovarian vascularity:Doppler demonstrates both arterial and venous vascular flow in the right and left ovary. No evidence of ovarian torsion. Right Ovary: Corpus luteum cyst in the right ovary measuring 1.1 x 1.1 x 1.3 cm. Right ovary measures 2.6 x 2.8 x 2.9 cm. Left Ovary: Left ovary measures 3.3 x 1.4 x 1.4 cm. Cul-de-sac: No Fluid IMPRESSION: 1. Intrauterine gestation with estimated gestational age by today's exam of 8 weeks 1 day, ASUNCION 12/26/2017. 2. Small subchorionic hemorrhage adjacent to the gestational sac measuring 0.7 x 1 x 0.7 cm.
[2017-05-17 15:52] VITALS: BP 122/71
== END 2017-05-17 16:26 ==
LOC: ERH 12:00
PROVIDERS: Emergency Medicine
DX: O99.89 Other specified diseases and conditions complicating pregnancy, childbirth and the puerperium (principal); R20.2 Paresthesia of skin; Z3A.08 8 weeks gestation of pregnancy
CPT/HCPCS: 80307; 81003; 81025; 87086; 93005; 93010; 96360

== ENCOUNTER 2017-12-25 04:15 | Inpatient (IN) | payer OTHER ==
[~2017-12-25] VITALS: Ht 162.6 cm; Wt 80.7 kg
[~2017-12-25 04:15] MED LIST changes: +VITAFOL ULTRA1 EACH PO
[2017-12-25 04:55] VITALS: BP 121/68
[2017-12-25 05:29] LABS: ABSOLUTE BASOPHIL COUNT 0.1 /CUMM (0.0-0.2); ABSOLUTE EOSINOPHIL COUNT 0.2 /CUMM (0.0-0.7); ABSOLUTE GRANULOCYTE CT 16.3 /CUMM (1.4-6.5); ABSOLUTE LYMPH COUNT 4.3 /CUMM (1.2-3.4); ABSOLUTE MONOCYTE COUNT 1.4 /CUMM (0.10-0.60); BASOPHIL % 0.3 % (0.0-2.0); GRANULOCYTE % 73.1 % (42.2-75.2); HEMATOCRIT 32.5 % (37-47); MEAN CORPUSCULAR HGB 32.3 PG (27.0-31.0); MEAN CORPUSCULAR HGB CONC 33.7 G/DL (33.0-37.0); MEAN CORPUSCULAR VOLUME 95.9 FL (81.0-99.0); MEAN PLATELET VOLUME 9.2 FL (7.4-10.4); PLATELET COUNT 378 /CUMM (130-400); RBC DISTRIBUTION WIDTH 14.1 % (11.5-14.5); RED BLOOD CELL CT 3.39 /CUMM (4.20-5.40)
[2017-12-25 06:13] LABS: WHITE BLOOD CELL COUNT 22.3 /CUMM (4.8-10.8)
--- NOTE | 2017-12-25 08:22 | History & Physical ---
General Information and HPI MD Statement: I have seen and personally examined EUGENIA RANGEL and documented this H&P. The patient is a 27 year old female at 40 weeks and 4 days gestation who presented with a chief complaint of contractions. Source of Information: patient, old records Exam Limitations: no limitations History of Present Illness: Patient is a 27 year old at [id number] who presented to [facility] this am and was found to be 4 cm dilated. Over the past 24 hours this is her third evaluation for labor. She is a patient of Dr Bautista. She was seen by Dr Bautista yesterday am and had an examination. Subsequent vaginal bleeding prompted her to go to [place]. She was discharged from their triage and was informed fetus was [id number]. She than went to [facility] and found to be 2 cm dilated. Patient stated Dr Bautista said she would induce patient on Sunday. Patient states that she wasnt happy with that response and came to [place]. On arrival last night patient was irregularly aj and over a period of 2 hours made no cervical change. She was 3-4 cm. 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 : 3 Para: 0 Last Menstrual Period: 03/07/17 Estimated Delivery Date: 12/21/17 Past coat room attendant History: none Medical History Blood Transfusion Hx: No Neurological: vertigo EENT: NONE Cardiovascular: NONE Respiratory: NONE Gastrointestinal: LACTOSE INTOLLERANT Hepatic: NONE Renal: NONE Musculoskeletal: NONE Psychiatric: anxiety, substance abuse Endocrine: NONE Blood Disorders: NONE Cancer(s): NONE 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 Home Who Do You Live With? parent Primary Language: Kinyarwanda Smoking Status: Current Everyday Smoker ETOH Use: denies use Illicit Drug Use: marijuana Living Will? unknown Power of Department Assistant/HCP? unknown Employment History Employment Unemployed Review of Systems Review of Systems Constitutional: Denies: no symptoms. EENTM: Denies: no symptoms. Cardiovascular: Denies: no symptoms. Respiratory: Denies: no symptoms. GI: Denies: no symptoms. Genitourinary: Denies: no symptoms. Musculoskeletal: Denies: no symptoms. Skin: Denies: no symptoms. Neurological/Psychological: Denies: no symptoms. Hematologic/Endocrine: Denies: no symptoms. Immunologic/Allergic: Denies: no symptoms. All Other Systems: Reviewed and Negative Date of LMP: 03/16/17 Post Menopausal: No Date of Last Pap Smear: 05/28/17 Colonoscopy Testing Status: Test never done Comments Pap ascus 05/28/17 Exam & Diagnostic Data Last 24 Hrs of Vital Signs/I&O Vital Signs Date Time Temp Pulse Resp B/P B/P Pulse O2 O2 Flow FiO2 Mean Ox Delivery Rate 12/25 0455 121/68 Intake & Output 12/25 1600 12/25 0800 12/25 0000 Intake Total Output Total Balance Patient 80.739 kg Weight Obstetric Exam Wgt Gained During : 32 lbs Pelvimetry: Gynecoid Dilation (cm): 6 Effacement (%): 100 Station: -1 Membranes: intact Fluid: Intact Fundal Height (cm): 39 Multiple Gestation? No Contractions: Q 2-4 #1 - FHR Baseline: 140 Category: 1 Estimated Weight: 2700 grams Presentation: Cephalic Patient for Induction? No Physical Exam General Appearance Alert, Oriented X3, Cooperative, Mild Distress Skin No Rashes HEENT Atraumatic Neck Supple Cardiovascular Regular Rate Lungs Normal Air Movement Abdomen Soft, No Tenderness Neurological Normal Gait, Normal Speech, Strength at 5/5 X4 Ext, Normal Tone, Sensation Intact, Cranial Nerves 3-12 NL, Reflexes 2+ Extremities No Edema Breasts Breast appear nl Reproductive (FEMALE) Normal female genitalia Pelvic (FEMALE) Appearance Normal Labs Blood Type & Rh: B positive Antibody Screen: negative Hct/Hgb & Platelets #1: 36.6/333 Hct/Hgb & Platelets #2: 32.5/361 Rubella: Immune VDRL #1: negative VDRL #2: negative HbsAg: negative HIV #1: negative HIV #2 negative 1 Hr P 3 Hr PG: NA Group B Strep: Negative Initial Ultrasound: Documented wnl per Dr Bautista at 10 weeks Anatomy Ultrasound: Wnl per patient Ultrasound for EFW: 2638 grams on 12/24/17 at [place] per patient Genetic Testing: Per patient negative Last 24 Hrs of Labs/Damion: Laboratory Tests 12/25/17 0450: CBC w Diff NO MAN DIFF REQ, RBC 3.39 L, MCV 95.9, MCH 32.3 H, MCHC 33.7, RDW 14.1, MPV 9.2, Gran % 73.1, Lymphocytes % 19.2 L, Monocytes % 6.4, Eosinophils % 1.0, Basophils % 0.3, Absolute Granulocytes 16.3 H, Absolute Lymphocytes 4.3 H, Absolute Monocytes 1.4 H, Absolute Eosinophils 0.2, Absolute Basophils 0.1, Urine Opiates Screen < 100, Methadone Screen < 40, Barbiturate Screen < 60, Ur Phencyclidine Scrn < 6.00, Amphetamines Screen < 100, U Benzodiazepines Scrn < 85, Urine Cocaine Screen < 50, Urine Cannabis Screen 11.60 Assessment/Plan Assessment/Plan: 27 year old P0 at [id number] with complicated by tobacco use and SGA fetus in my opinion. She is now in active labor and GBBS negative. Plan is for admission Discussed pain mgmt for labor. She is s/p Morphine and Vistaril. ID. WBC 22 however GBBS negative and afebrile. Catagory 1 tracing and cervical dilation is adequate at present. Will reassess at 1130 am for change. Tobacco use. Discussed risks to for tobacco. This being ear and respiratory infections and SIDS. To review NRT for use. Will discuss pneumovax as well. Ascus pap. Will need repeat in the period as no cotesting documented. Peds informed of patient. History of THC use. Follow up additional urine toxicology and SW consultation. Anticipate vaginal . Treatment plan reviewed with patient and family and in agreement As Ranked By This Provider Problem List: 1. Tobacco use affecting in third trimester, antepartum 2. Active labor at term Core Measures Venous Thromboembolism VTE Risk Factors / No Mechanical VTE Prophylaxis d/t N/A MechProphylax Ordered No VTE Pharm Prophylaxis d/t NA PharmProphylax ordered
--- NOTE | 2017-12-25 09:58 | PN- OBGYN ---
Surgical Brief Attending Note Brief Attending Note: Informed by Abigail MAXWELL that patient now 7-8 cm and epidural requested. Catagory 1 tracing noted. Anticipate vaginal .
--- NOTE | 2017-12-25 12:13 | PN- OBGYN ---
Surgical Brief Attending Note Brief Attending Note: Now /-1/no molding on my exam Catagory 1 tracing Contractions q2-[address] Urine clear with martins Placed left lateral with peanut ball. If no change with next exam than oxytocin otherwise expectant management. T99.6 after epidural.
--- NOTE | 2017-12-25 13:19 | PN- OBGYN ---
Surgical Brief Attending Note Brief Attending Note: Contraction pattern q5-6 Will start low dose oxytocin Catagory 1 tracing Gynecoid pelvis. In my opinion her labor curve protracted from hypotonic contraction pattern.
--- NOTE | 2017-12-25 15:27 | PN- OBGYN ---
Surgical Brief Attending Note Brief Attending Note: C/o increased pain Epidural was bolused now x 2 with minimal relief. AVSS 9/100/-1 to 0 and ROT and no molding AROM clear fluid Catagory 1 tracing Oxytocin at 3 cc per hour I contacted Anesthesiology Dr Malin and agreement was for replacement of epidural. Protracted labor curve noted Will reassess in 2 hours but IUPC may be needed to assess pattern. Contractions are more frequent now but patient intolerant of the pain.
--- NOTE | 2017-12-25 17:35 | Labor & Delivery Summary ---
Delivery Summary Vaginal Delivery: Vaginal: spontaneous Episiotomy/Lacerations: Episiotomy/Lacerations: 1st degree x 3. Fourchette, left lateral and right lateral Type: See above No repair needed as hemostatic Placenta: Placenta: spontanteous, normal, 3 vessel, Corporal around foot Anesthesia: Epidural and then single shot spinal Apgars - 1 Min: 9 Apgars - 5 Min: 9 Additional Comments: Placenta to pathology as sga appearing grossly Shoulders passed spontaneously. Right shoulder anterior Intact perineum liveborn female Uterus with mild atony and responded to oxytocin and methergine 0.2 mg IM x 1 Rectum intact
[2017-12-26 08:17] LABS: ABSOLUTE BASOPHIL COUNT 0.1 /CUMM (0.0-0.2); ABSOLUTE EOSINOPHIL COUNT 0.2 /CUMM (0.0-0.7); ABSOLUTE GRANULOCYTE CT 17.4 /CUMM (1.4-6.5); ABSOLUTE LYMPH COUNT 5.7 /CUMM (1.2-3.4); ABSOLUTE MONOCYTE COUNT 1.3 /CUMM (0.10-0.60); BASOPHIL % 0.4 % (0.0-2.0); EOSINOPHIL % 0.8 % (0-5); MEAN CORPUSCULAR HGB 32.2 PG (27.0-31.0); MEAN CORPUSCULAR HGB CONC 33.3 G/DL (33.0-37.0); MEAN CORPUSCULAR VOLUME 96.7 FL (81.0-99.0); MEAN PLATELET VOLUME 9.3 FL (7.4-10.4); RBC DISTRIBUTION WIDTH 14.3 % (11.5-14.5); RED BLOOD CELL CT 2.82 /CUMM (4.20-5.40)
[2017-12-26 08:34] LABS: HEMATOCRIT 27.3 % (37-47)
[2017-12-26 08:58] LABS: GRANULOCYTE % 70.5 % (42.2-75.2); PLATELET COUNT 341 /CUMM (130-400); WHITE BLOOD CELL COUNT 24.7 /CUMM (4.8-10.8)
--- NOTE | 2017-12-26 10:47 | PN- OBGYN ---
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 Lidocaine patch for local pain relief. She had an epidural and spinal. Motrin as needed for uterine cramps. Declined NRT. Risks of tobacco exposure to health reviewed. Partner and patient are active smokers. Will give pneumovax at follow up visit Tdap prior to dc with benefits reviewed Heme. Hct low but stable and no orthostatic changes. Utetine atony noted but resolved. Iron daily and to continue on vitamins at home for iron stores. ID. WBC elevated but no focal findings for infection. Up to date with dental care per patient. Appreciate VNA services DC home tomorrow with one week CBC follwo up. VNA follow up and follow up at my office for 4 weeks. Contraception. Will recommend IUD.
[2017-12-27] MEDS ORDERED: IBUPROFEN800 M1 PO (08:29)
--- NOTE | 2017-12-27 08:31 | PN- OBGYN ---
Surgical Brief Attending Note Brief Attending Note: Seen and examined Ready to go home Back pain improved Denies nausea nor vomiting Cramps mild AVSS Abdomen. fundus firm PPD#2 S/p vaginal Tdap prior to dc preeclampsia precautions reviewed Follow up as outlined in 4 weeks and IUD to be placed at that time DC home today
== END 2017-12-27 09:20 | DRG 560 ==
LOC: CBCO 04:15 → GNO 04:30
PROVIDERS: Obstetrics & Gynecology
PROC: 0HQ9XZZ Repair Perineum Skin, External Approach (ICD-10-PCS; principal; 2017-12-25)
PROC: 10E0XZZ Delivery of Products of Conception, External Approach (ICD-10-PCS; principal; 2017-12-25)
DX: O70.0 First degree perineal laceration during delivery (principal); Z3A.40 40 weeks gestation of pregnancy; Z37.0 Single live birth; O99.334 Smoking (tobacco) complicating childbirth
CPT/HCPCS: GNOP; 36415; 80307; 81001; 87086; J2210; J7120